=== PATIENT | male | born 1990 | race African-American/Black ===

== ENCOUNTER 2018-01-02 08:07 | Emergency (ER) | payer SELFPAY ==
[2018-01-02] MEDS ORDERED: ACETAMINOPHEN 325 MG TABLET PO ONE (08:27)
--- NOTE | 2018-01-02 09:11 | ER Document Report ---
HPI - HPI Patient complains to provider of: cough, fever, runny nose Onset: Yesterday Onset/Duration: Sudden Quality of pain: Achy Pain Level: 4 Context: 27 yo smoker male with aches, fever, sinus congestion, cough since yesterday. No chest pain or sob. No abd pain, n/v/d. Associated Symptoms: None Exacerbated by: Denies Relieved by: Denies Similar symptoms previously: No Recently seen / treated by doctor: No - ROS ROS below otherwise negative: Yes Systems Reviewed and Negative: Yes All other systems reviewed and negative Past Medical History - General Information source: Patient - Social History Smoking Status: Current Every Day Smoker Frequency of alcohol use: None Drug Abuse: None Lives with: Family Family History: Reviewed & Not Pertinent - Medical History Medical History: Negative Surgical Hx: Negative - Immunizations Hx Diphtheria, Pertussis, Tetanus Vaccination: Yes Vertical Provider Document - CONSTITUTIONAL Agree With Documented VS: Yes Exam Limitations: No Limitations General Appearance: No Apparent Distress - INFECTION CONTROL TRAVEL OUTSIDE OF THE [place] IN LAST 30 DAYS: No - HEENT HEENT: Normocephalic, Pharyngeal Erythema. negative: Conjuctival Injection, Tympanic Membrane Red - NECK Neck: Supple. negative: Lymphadenopathy-Left, Lymphadenopathy-Right - RESPIRATORY Respiratory: Breath Sounds Normal, No Respiratory Distress O2 Sat by Pulse Oximetry: 94 - CARDIOVASCULAR Cardiovascular: Regular Rate, Regular Rhythm - GI/ABDOMEN Gastrointestinal: Abdomen Soft, Abdomen Non-Tender, No Organomegaly - MUSCULOSKELETAL/EXTREMETIES Musculoskeletal/Extremeties: MAEW - NEURO Level of Consciousness: Awake, Alert, Appropriate Motor/Sensory: No Motor Deficit, No Sensory Deficit - DERM Integumentary: No Rash Course - Re-evaluation Re-evalutation: 01/02/18 09:41 Discussed Tamiflu with the patient decides not to take the medication. Encouraged him not to smoke. Advised him of symptoms of secondary bacterial infection so he is aware when he needs to follow-up. 01/02/18 10:42 Pulse ox 95% with [facility] so I will write a prescription for albuterol metered- dose inhaler. Lungs continue to remain clear. - Vital Signs Vital signs: Temp Pulse Resp BP Pulse Ox 103.2 F H 121 H 20 143/73 H 94 01/02/18 08:26 01/02/18 08:26 01/02/18 08:26 01/02/18 08:26 02/09/18 08:26 Discharge - Discharge Clinical Impression: Influenza-like illness Condition: Good Disposition: HOME, SELF-CARE Instructions: Acetaminophen, Anti-Inflammatory Medication ([facility]), Influenza ([facility] ) [id number], Inhaled Bronchodilators ([facility]), Stop Smoking ([facility]) Additional Instructions: rest plenty of fluids quit smoking cool mist humidifier to ER if symptoms worsen Prescriptions: Albuterol Sulfate [Proair HFA Inhalation Aerosol 8.5 gm MDI] 2 puff IH Q3HP PRN #1 [email or web address] PRN Reason: Forms: Return to Work
[2018-01-02] MEDS ORDERED: IBUPROFEN 800 MG TABLET PO ONE (09:41)
[2018-01-02] MEDS ORDERED: IPRATROPIUM/ALBUTEROL 0.5-2.5 MG/3 ML AMPUL NEB ONE (09:58)
[2018-01-02 10:47] VITALS: BP 109/63
== END 2018-01-02 10:47 | disposition home or self-care (01) ==
LOC: ER 08:07
DX: J11.1 Influenza due to unidentified influenza virus with other respiratory manifestations (principal); R50.9 Fever, unspecified; R09.81 Nasal congestion; R05 Cough; R52 Pain, unspecified; F17.200 Nicotine dependence, unspecified, uncomplicated
CPT/HCPCS: 94640; 99283; J7620

== ENCOUNTER 2018-08-10 13:10 | Emergency (ER) | payer BC ==
--- NOTE | 2018-08-10 14:11 | ER Document Report ---
ED Medical Screen (RME) - General TRAVEL OUTSIDE OF THE [place] IN LAST 30 DAYS: No <UDAY CARDOZA - Last Filed: 08/10/18 14:10> <DELONTE HOLBROOK - Last Filed: 08/10/18 19:31> - General Chief Complaint: Breathing Difficulty Stated Complaint: DIFFICULTY BREATHING Time Seen by Provider: 08/10/18 14:09 Notes: 27 years old male presents today with left upper back and chest wall pain. Since yesterday. States each time almost the pain is increased in intensity. Denied any fever chills but was coughing around noon. Nonproductive cough. Difficult historian (UDAY CARDOZA) - Related Data Allergies/Adverse Reactions: clindamycin Adverse Reaction (Verified 08/10/18 13:11) Past Medical History - Social History Chew tobacco use (# tins/day): No Frequency of alcohol use: Social Drug Abuse: None Renal/ Medical History: Denies: Hx Peritoneal Dialysis - Immunizations Hx Diphtheria, Pertussis, Tetanus Vaccination: Yes <UDAY CARDOZA - Last Filed: 08/10/18 14:10> - Vital signs Vitals: Temp Pulse Resp BP Pulse Ox 99.6 F 102 H 22 H 136/52 H 100 08/10/18 14:09 08/10/18 14:09 08/10/18 14:09 08/10/18 14:09 08/10/18 14:09 Course - Laboratory Result Diagrams: 08/10/18 14:46 08/10/18 14:46 <DELONTE HOLBROOK - Last Filed: 08/10/18 19:31> - Vital Signs Vital signs: Temp Pulse Resp BP Pulse Ox 100.2 F 98 20 104/64 97 08/10/18 18:28 08/10/18 18:28 08/10/18 18:28 08/10/18 18:28 08/10/18 18:28 - Laboratory Laboratory results interpreted by me: 08/10/18 08/10/18 14:46 14:46 WBC 19.1 H Seg Neutrophils % 82.4 H Lymphocytes % 10.9 L Absolute Neutrophils 15.7 H BUN 6 L Total Protein 8.8 H Doctor's Discharge <UDAY CARDOZA - Last Filed: 08/10/18 14:10> <DELONTE HOLBROOK - Last Filed: 08/10/18 19:31> - Discharge Clinical Impression: Viral syndrome, Myalgia Condition: Stable Disposition: HOME, SELF-CARE Instructions: Viral Syndrome ([facility]) Additional Instructions: Please return to the emergency department if you have any worsening, or concern of your symptoms. Please return to the emergency department if you develop chest pain, difficulty breathing, severe abdominal pain, or ongoing vomiting. Please follow-up with your primary care physician in 2-3 days and any other recommended physicians. If prescribed, take all medications as directed. If you have any questions or concerns do not hesitate to return the emergency department for evaluation. Prescriptions: Ibuprofen [Motrin 600 Mg Tablet] 600 mg PO Q8H PRN #15 tablet PRN Reason: body aches Referrals: KEVIN GILLESPIE MD [ACTIVE STAFF] - Follow up in 3-5 days (or your primary care)
[2018-08-10 15:05] LABS: ABSOLUTE BASOPHILS # (AUTO) 0.1 10^3/uL (0.0-0.2); ABSOLUTE EOSINOPHILS # (AUTO) 0.2 10^3/uL (0.0-0.6); ABSOLUTE LYMPHOCYTES (AUTO) 2.1 10^3/uL (0.5-4.7); ABSOLUTE MONOCYTES (AUTO) 0.9 10^3/uL (0.1-1.4); ABSOLUTE NEUT (AUTO) 15.7 10^3/uL (1.7-8.2); BASOPHILS % (AUTO) 0.6 % (0-2); EOSINOPHILS % (AUTO) 1.2 % (0-6); HEMATOCRIT 45.6 % (37.9-51.0); HEMOGLOBIN 15.6 g/dL (13.5-17.0); LYMPHOCYTES % (AUTO) 10.9 % (13-45); MEAN CORPUSCULAR HEMOGLOBIN 31.3 pg (27.0-33.4); MEAN CORPUSCULAR HGB CONC 34.1 g/dL (32.0-36.0); MEAN CORPUSCULAR VOLUME 92 fl (80-97); MONOCYTES % (AUTO) 4.9 % (3-13); PLATELET COUNT 246 10^3/uL (150-450); RED BLOOD COUNT 4.98 10^6/uL (4.35-5.55); SEGMENTED NEUTROPHILS % (AUTO) 82.4 % (42-78); TOTAL CELLS COUNTED % (AUTO) 100 %; WHITE BLOOD COUNT 19.1 10^3/uL (4.0-10.5)
--- NOTE | 2018-08-10 15:09 | RADIOLOGY REPORT (SQ) ---
EXAM DESCRIPTION: CHEST 2 VIEWS COMPLETED DATE/TIME: 08/10/2018 2:32 pm REASON FOR STUDY: Chest pain COMPARISON: 12/17/2008 EXAM PARAMETERS: NUMBER OF VIEWS: two views TECHNIQUE: Digital Frontal and Lateral radiographic views of the chest acquired. RADIATION DOSE: NA LIMITATIONS: none FINDINGS: LUNGS AND PLEURA: No opacities, masses or pneumothorax. No pleural effusion. MEDIASTINUM AND HILAR STRUCTURES: No masses or contour abnormalities. HEART AND VASCULAR STRUCTURES: Heart normal size. No evidence for failure. BONES: No acute findings. HARDWARE: None in the chest. OTHER: No other significant finding. IMPRESSION: NO ACUTE RADIOGRAPHIC FINDING IN THE CHEST. TECHNICAL DOCUMENTATION: JOB ID: [id number] [employer]- All Rights Reserved Reading location - IP/workstation name: [email or web address]
[2018-08-10 15:24] LABS: APPEARANCE,URINE CLEAR; BILIRUBIN,URINE NEGATIVE (NEGATIVE); COLOR,URINE STRAW; GLUCOSE, URINE NEGATIVE (NEGATIVE); KETONES,URINE NEGATIVE (NEGATIVE); LEUKOCYTE ESTERASE,URINE NEGATIVE (NEGATIVE); NITRITE,URINE NEGATIVE (NEGATIVE); PROTEIN,URINE NEGATIVE (NEGATIVE); URINE SPECIFIC GRAVITY 1.015; UROBILINOGEN,URINE NEGATIVE mg/dL (<2.0)
[2018-08-10 15:28] LABS: URINE AMPHETAMINES SCREEN NEGATIVE; URINE BARBITURATES SCREEN NEGATIVE; URINE BENZODIAZEPINES SCREEN NEGATIVE; URINE COCAINE SCREEN NEGATIVE; URINE MARIJUANA (THC) SCREEN NEGATIVE; URINE METHADONE SCREEN NEGATIVE; URINE PHENCYCLIDINE SCREEN NEGATIVE
[2018-08-10 15:31] LABS: ALANINE AMINOTRANSFERASE 46 U/L (21-72); ALBUMIN 4.8 g/dL (3.5-5.0); ALKALINE PHOSPHATASE 94 U/L (38-126); ANION GAP 11 (5-19); ASPARTATE AMINO TRANSFERASE 35 U/L (17-59); BILIRUBIN,DIRECT 0.4 mg/dL (0.0-0.4); BILIRUBIN,TOTAL 0.6 mg/dL (0.2-1.3); BLOOD UREA NITROGEN 6 mg/dL (7-20); CALCIUM 10.1 mg/dL (8.4-10.2); CARBON DIOXIDE 25 mmol/L (22-30); CHLORIDE 103 mmol/L (98-107); GLUCOSE 92 mg/dL (75-110); POTASSIUM 4.4 mmol/L (3.6-5.0); SODIUM 139.3 mmol/L (137-145); TOTAL PROTEIN 8.8 g/dL (6.3-8.2)
[2018-08-10 15:34] LABS: ALCOHOL < 10 mg/dL (NONE DETECTED)
[2018-08-10] MEDS ORDERED: KETOROLAC TROMETHAMINE 60 MG/2 ML SDV IM ONE (18:40)
[2018-08-10] MEDS ORDERED: DEXAMETHASONE SOD PHOS INJ 10 MG/1 ML VIAL IV ONE (18:40)
[2018-08-10 19:38] VITALS: BP 118/76
[2018-08-10] MEDS ORDERED: DEXAMETHASONE CONC 1 MG/ML SOLN PO ONE (19:40)
--- NOTE | 2018-08-10 19:47 | ER Document Report ---
ED General - General Chief Complaint: Breathing Difficulty Stated Complaint: DIFFICULTY BREATHING Time Seen by Provider: 08/10/18 14:09 Notes: Patient is a 27-year-old male that presents to the emergency department for chief complaint of body aches. Patient states his been having symptoms since early this morning, complained of body aches in his legs, arms, shoulders, and had some shortness of breath as well. He also complained of a sore throat, and nausea earlier. He denies having any vomiting, he states he is feeling much better than earlier today, he has not had much to drink today, and feels he may be somewhat dehydrated as well. Denies any chronic medical conditions. He admits to having some subjective fevers and chills, denies any neck stiffness, or headache, blurred vision, numbness, tingling or weakness. Past Medical History: Denies chronic medical conditions Past Surgical History: Denies major surgical history Social History: Admits to smoking cigarettes daily, denies drug use, admits to occasional alcohol use Family History: Reviewed and noncontributory for presenting illness Allergies: Reviewed, see documented allergy list. REVIEW OF SYSTEMS: Unless otherwise stated in this report the patient's positive and negative responses for review of systems for constitutional, eyes, ENT, cardiovascular, respiratory, gastrointestinal, neurological, genitourinary, musculoskeletal, and integumentary systems and related systems to the presenting problem are either as stated in the HPI or were not pertinent or were negative for the symptoms and/or complaints related to the presenting medical problem. PHYSICAL EXAMINATION: Vital signs reviewed, nursing noted reviewed. GENERAL: Well-appearing, well-nourished and in no acute distress. HEAD: Atraumatic, normocephalic. EYES: Eyes appear normal, extraocular movements intact, sclera anicteric, conjunctiva are normal. ENT: nares patent, mild tonsillar edema and erythema. Moist mucous membranes. NECK: Normal range of motion, supple without lymphadenopathy LUNGS: Breath sounds clear to auscultation bilaterally and equal. No wheezes rales or rhonchi. HEART: Regular rate and rhythm without murmurs ABDOMEN: Soft, nontender, normoactive bowel sounds. No rebound, guarding, or rigidity. No masses appreciated. EXTREMITIES: Mild tenderness with palpation to the upper or lower extremities, generally, no focal tenderness noted, good range of motion, no pitting or edema. NEUROLOGICAL: No focal neurological deficits. Moves all extremities spontaneously Motor and sensory grossly intact on exam. PSYCH: Normal mood, flat affect. But appropriate and answering questions SKIN: Warm, Dry, normal turgor, no rashes or lesions noted on exposed skin TRAVEL OUTSIDE OF THE [place] IN LAST 30 DAYS: No - Related Data Allergies/Adverse Reactions: clindamycin Adverse Reaction (Verified 08/10/18 13:11) Past Medical History - Social History Smoking Status: Never Smoker Chew tobacco use (# tins/day): No Frequency of alcohol use: Social Drug Abuse: None Family History: Reviewed & Not Pertinent Patient has suicidal ideation: No Patient has homicidal ideation: No Renal/ Medical History: Denies: Hx Peritoneal Dialysis - Immunizations Hx Diphtheria, Pertussis, Tetanus Vaccination: Yes Physical Exam - Vital signs Vitals: Temp Pulse Resp BP Pulse Ox 99.6 F 102 H 22 H 136/52 H 100 08/10/18 14:09 08/10/18 14:09 08/10/18 14:09 08/10/18 14:09 08/10/18 14:09 Course - Re-evaluation Re-evalutation: Patient seen and examined vital signs reviewed. Laboratory data and imaging were ordered as appropriate for the patient's presenting symptoms and complaint, with consideration of any critical or life threatening conditions that may be associated with their obtained history and exam as noted above. Patient was treated with IM Toradol, and p.o. Decadron Results were reviewed when available and demonstrated leukocytosis, negative chest x-ray. The patient was re-evaluated and was improved from presentation, overall all of his symptoms are improved on my evaluation Evaluation was most consistent with myalgias, viral pharyngitis, patient symptoms, most consistent with a viral syndrome, possible mononucleosis given leukocytosis, also possible mild dehydration, however patient able to take po, and no renal impairment, he is encouraged to hydrate at home, advised to return to the emergency department if his symptoms worsened. Results were discussed with the patient at this point, after careful consideration I feel that that patient can be discharged from the emergency department, the patient was educated treatments and reasons to return to the emergency department based on their presumed diagnosis as noted above, they were advised to followup with a primary care physician in 2-3 days. Patient was agreeable to plan of care. *Note is created using voice recognition software and may contain spelling, syntax or grammatical errors. Laboratory 08/10/18 08/10/18 08/10/18 14:46 14:46 14:46 WBC 19.1 H RBC 4.98 Hgb 15.6 Hct 45.6 MCV 92 MCH 31.3 MCHC 34.1 RDW 14.0 Plt Count 246 Seg Neutrophils % 82.4 H Lymphocytes % 10.9 L Monocytes % 4.9 Eosinophils % 1.2 Basophils % 0.6 Absolute Neutrophils 15.7 H Absolute Lymphocytes 2.1 Absolute Monocytes 0.9 Absolute Eosinophils 0.2 Absolute Basophils 0.1 Sodium 139.3 Potassium 4.4 Chloride 103 Carbon Dioxide 25 Anion Gap 11 BUN 6 L Creatinine 0.99 Est GFR ( Amer) > 60 Est GFR (Non-Af Amer) > 60 Glucose 92 Calcium 10.1 Total Bilirubin 0.6 Direct Bilirubin 0.4 Neonat Total Bilirubin Not Reportable Neonat Direct Bilirubin Not Reportable Neonat Indirect Bili Not Reportable AST 35 ALT 46 Alkaline Phosphatase 94 Total Protein 8.8 H Albumin 4.8 Urine Color STRAW Urine Appearance CLEAR Urine pH 8.0 Ur Specific Electra 1.015 Urine Protein NEGATIVE Urine Glucose (UA) NEGATIVE Urine Ketones NEGATIVE Urine Blood NEGATIVE Urine Nitrite NEGATIVE Urine Bilirubin NEGATIVE Urine Urobilinogen NEGATIVE Ur Leukocyte Esterase NEGATIVE Urine WBC (Auto) 1 Urine RBC (Auto) 1 Squamous Epi Cells Auto <1 Urine Mucus (Auto) RARE Urine Ascorbic Acid NEGATIVE Urine Opiates Screen Urine Methadone Screen Ur Barbiturates Screen Ur Phencyclidine Scrn Ur Amphetamines Screen U Benzodiazepines Scrn Urine Cocaine Screen U Marijuana (THC) Screen Serum Alcohol < 10 08/10/18 14:46 WBC RBC Hgb Hct MCV MCH MCHC RDW Plt Count Seg Neutrophils % Lymphocytes % Monocytes % Eosinophils % Basophils % Absolute Neutrophils Absolute Lymphocytes Absolute Monocytes Absolute Eosinophils Absolute Basophils Sodium Potassium Chloride Carbon Dioxide Anion Gap BUN Creatinine Est GFR ( Amer) Est GFR (Non-Af Amer) Glucose Calcium Total Bilirubin Direct Bilirubin Neonat Total Bilirubin Neonat Direct Bilirubin Neonat Indirect Bili AST ALT Alkaline Phosphatase Total Protein Albumin Urine Color Urine Appearance Urine pH Ur Specific Electra Urine Protein Urine Glucose (UA) Urine Ketones Urine Blood Urine Nitrite Urine Bilirubin Urine Urobilinogen Ur Leukocyte Esterase Urine WBC (Auto) Urine RBC (Auto) Squamous Epi Cells Auto Urine Mucus (Auto) Urine Ascorbic Acid Urine Opiates Screen NEGATIVE Urine Methadone Screen NEGATIVE Ur Barbiturates Screen NEGATIVE Ur Phencyclidine Scrn NEGATIVE Ur Amphetamines Screen NEGATIVE U Benzodiazepines Scrn NEGATIVE Urine Cocaine Screen NEGATIVE U Marijuana (THC) Screen NEGATIVE Serum Alcohol Chest X-Ray 08/10/18 14:10 IMPRESSION: NO ACUTE RADIOGRAPHIC FINDING IN THE CHEST. - Vital Signs Vital signs: Temp Pulse Resp BP Pulse Ox 100.2 F 98 28 H 118/76 97 08/10/18 18:28 08/10/18 18:28 08/10/18 19:30 08/10/18 19:30 08/10/18 19:30 - Laboratory Result Diagrams: 08/10/18 14:46 08/10/18 14:46 Laboratory results interpreted by me: 08/10/18 08/10/18 14:46 14:46 WBC 19.1 H Seg Neutrophils % 82.4 H Lymphocytes % 10.9 L Absolute Neutrophils 15.7 H BUN 6 L Total Protein 8.8 H - Diagnostic Test Radiology reviewed: Image reviewed Discharge - Discharge Clinical Impression: Viral syndrome, Myalgia, Viral pharyngitis Condition: Stable Disposition: HOME, SELF-CARE Instructions: Viral Syndrome ([facility]) Additional Instructions: Please return to the emergency department if you have any worsening, or concern of your symptoms. Please return to the emergency department if you develop chest pain, difficulty breathing, severe abdominal pain, or ongoing vomiting. Please follow-up with your primary care physician in 2-3 days and any other recommended physicians. If prescribed, take all medications as directed. If you have any questions or concerns do not hesitate to return the emergency department for evaluation. Prescriptions: Ibuprofen [Motrin 600 Mg Tablet] 600 mg PO Q8H PRN #15 tablet PRN Reason: body aches Forms: Return to Work Referrals: KEVIN GILLESPIE MD [ACTIVE STAFF] - Follow up in 3-5 days (or your primary care)
== END 2018-08-10 20:15 | disposition home or self-care (01) ==
LOC: ER 13:10
DX: B34.9 Viral infection, unspecified (principal); M79.1 Myalgia; J02.9 Acute pharyngitis, unspecified
CPT/HCPCS: 99285; 96372; 36415; 80307 ×2; 85025; 80053; 81001; 71046; J1885; J8540

== ENCOUNTER 2018-08-14 22:54 | Emergency (ER) | payer BC ==
[2018-08-15] MEDS ORDERED: PREDNISONE 20 MG TABLET PO ONE (02:00)
[2018-08-15] MEDS ORDERED: LIDOCAINE 2% VISCOUS SOLN 20 ML UDCUP PO ONE (02:00)
[2018-08-15] MEDS ORDERED: MAG HYDROX/AL HYDROX/SIMETH SUSP 30 ML UDCUP PO ONE (02:01)
[2018-08-15] MEDS ORDERED: KETOROLAC TROMETHAMINE 60 MG/2 ML SDV IM ONE (02:02)
--- NOTE | 2018-08-15 02:08 | ER Document Report ---
HPI - HPI Pain Level: 3 Notes: Patient is a 27-year-old male who presents with chief complaint of sinus drainage and sore throat 2 days. Patient reports the throat pain started getting worse this morning. Patient denies any fever, nausea, vomiting or diarrhea. Patient does report he was seen about 1 week ago for fever and chills however he states that resolved. - EENT EENT: REPORTS: Sore Throat Past Medical History - Social History Smoking Status: Current Every Day Smoker Family History: Reviewed & Not Pertinent Patient has suicidal ideation: No Patient has homicidal ideation: No Renal/ Medical History: Denies: Hx Peritoneal Dialysis - Immunizations Hx Diphtheria, Pertussis, Tetanus Vaccination: Yes Vertical Provider Document - CONSTITUTIONAL Notes: PHYSICAL EXAMINATION: GENERAL: Well-appearing, well-nourished and in no acute distress. HEAD: Atraumatic, normocephalic. EYES: Pupils equal round extraocular movements intact, conjunctiva are normal. ENT: Nares patent NECK: Normal range of motion LUNGS: No respiratory distress Musculoskeletal: Normal range of motion NEUROLOGICAL: Normal speech, normal gait. PSYCH: Normal mood, normal affect. SKIN: Warm, Dry, normal turgor, no rashes or lesions noted. - INFECTION CONTROL TRAVEL OUTSIDE OF THE [place] IN LAST 30 DAYS: No Course - Re-evaluation Re-evalutation: Patient's physical examination consistent with a viral upper respiratory illness. Patient will be discharged home in stable condition with supportive care as well as steroids. - Vital Signs Vital signs: Temp Pulse Resp BP Pulse Ox 98.3 F 92 126/79 H 98 08/14/18 23:20 08/14/18 23:20 08/14/18 23:20 08/14/18 23:20 Discharge - Discharge Clinical Impression: Sore throat, Nasal congestion Condition: Stable Disposition: HOME, SELF-CARE Additional Instructions: Viral Syndrome The physician has diagnosed a viral infection. Viruses not only cause "colds," but can cause many different symptoms including generalized aching, fever, headache, cough, diarrhea, nausea, vomiting, and fatigue. The treatment, for the most part, is simply relief of symptoms. This means that antibiotics are usually not given. Rest, fluids, pain medications and, occasionally, medication for the specific symptoms that are most bothersome will be prescribed. Use good handwashing to avoid passing the virus to others. Shared toys should be cleaned with disinfectant. Clean the toilets, sinks, and counter surfaces in bathrooms. Launder clothing in hot water. Contact the physician if you develop any new or unusual symptoms such as severe headache, stiff neck, high fever, chest pain, productive cough, or shortness of breath. You should be rechecked if you don't see marked improvement within seven to 10 days. Sore Throat Sore throats may be caused by viruses, bacteria, or fungi. Most are due to a virus, and must get better on their own. Bacterial sore throats, particularly those due to "strep," need treatment with antibiotics. If an antibiotic is prescribed, be sure to take the medication for a full 10 days. Failure to take the antibiotic can result in complications such as rheumatic fever. Sometimes, an injection of antibiotics is given instead of pills or liquid. This single "shot" is equal in effectiveness to the oral medication. To relieve symptoms, take acetaminophen for pain. Sip clear liquids frequently, or eat popsicles or ice chips. Anesthetic sprays or lozenges may help. Make sure the air in the room is not too dry. Avoid using decongestants or antihistamines. Call the doctor if there is no improvement in two days, or if you have difficulty breathing, increasing throat pain, high fever, rash, or frequent vomiting. Nasal Corticosteroid Inhaler Nasal "cortisone" inhalers decrease swelling and inflammation in the nasal passages. Nasal steroids decrease the effects of allergy and infection without affecting your whole body. They do NOT cause the side effects we see with steroid shots or pills. These inhalers are a long-term investment in keeping your nose and sinuses clear. You probably won't notice any difference for at least a day. Sometimes it takes several days. Once you have noticed improvement, you can cut back on the inhaler. If your problem only occurs at certain times of the year, you can stop it when you' re better. There's no harm in using it for a long time. Some patients may notice a dry tight throat at first. If you develop severe pain, fever, or foul nasal drainage, see the doctor at once. Toradol Injection You have been given an injection of ketorolac tromethamine (Toradol). This is an excellent, safe drug for pain control. It also has potent antiinflammatory action. You should have significant pain relief within about one hour. Toradol is not addicting and is non-sedating. It does not interfere with driving or work. Call or return if you develop itching, hives, shortness of breath, or rash. Please take medications as prescribed. Please purchase [id number] Sudafed D as this will help dry up your sinuses. Please follow-up with your primary care provider, call them Friday to schedule an appointment. Drink plenty of clear liquids, keep a cool mist humidifier at her bedside if possible. Perform good handwashing. Return to the emergency department if you develop worsening of your symptoms to include development of fever, worsening sore throat, you are unable to swallow, difficulty breathing or shortness of breath. Prescriptions: Fluticasone Propionate [Flonase Nasal [place] 50 Mcg/[place] 16 gm] 2 sprays NASL Q12 #1 inhaler Prednisone [Deltasone 20 mg Tablet] 3 tab PO DAILY 5 Days #15 tablet
[2018-08-15 02:32] VITALS: BP 134/80
== END 2018-08-15 02:32 | disposition home or self-care (01) ==
LOC: ER 22:54
DX: J02.9 Acute pharyngitis, unspecified (principal); R09.81 Nasal congestion; F17.200 Nicotine dependence, unspecified, uncomplicated
CPT/HCPCS: 96372; 99283; 87070; 87880; 87077; J1885; J3490; J7512